=== PATIENT | male | born 1980 | race African-American/Black ===

== ENCOUNTER 2016-04-16 17:25 | Inpatient (IN) | payer OTHER ==
[~2016-04-16] VITALS: Ht 167.6 cm; Wt 112.0 kg
[2016-04-16 18:22] LABS: EOSINOPHIL (%) 1.3 % (0-5); EOSINOPHIL COUNT 0.1 K/uL (0-0.3); IMMATURE GRANULOCYTE (%) 0.4 % (0.0-0.7); IMMATURE GRANULOCYTE COUNT 0.2 K/uL; LYMPHOCYTE COUNT 1.6 K/uL (1.0-2.8); MCH 27.5 PG (29.0-34.0); MCV 78.4 FL (86-99); MEAN PLAT.VOLUME 8.6 uM^3 (9.0-12.4); MONOCYTE (%) 11.1 % (3-12); MONOCYTE COUNT 0.5 K/uL (0-0.8); NEUTROPHIL (%) 52.2 % (45-76); NEUTROPHIL COUNT 2.4 K/uL (1.8-6.4); PLATELET COUNT 262 K/uL (156-360); RBC DIS.WIDTH-CV 12.7 % (11.8-14.6); RBC DIS.WIDTH-SD 35.9 % (39-53); WHITE BLOOD COUNT 4.7 K/uL (4.1-10.2)
[2016-04-16 18:54] LABS: AMPHETAMINE NEGATIVE (500 ng/mL); BARBITURATES NEGATIVE (200 ng/mL); BENZODIAZEPINES NEGATIVE (150 ng/mL); COCAINE NEGATIVE (150 ng/mL); INTERNAL CONTROLS VALID? YES; METHADONE NEGATIVE (200 ng/mL); METHAMPHETAMINE NEGATIVE (500 ng/mL); OPIATES (MORPHINE) NEGATIVE (100 ng/mL); OXYCODONE NEGATIVE (100 ng/mL); PHENCYCLIDINE NEGATIVE (25 ng/mL); PROPOXYPHENE NEGATIVE (300 ng/mL); THC CANNABINOIDS NEGATIVE (50 ng/mL); TRICYCLIC ANTIDEPRESSANTS NEGATIVE (300 ng/mL)
[2016-04-16 18:59] LABS: ANION GAP 9 MEQ/L (2-14); CHLORIDE 100 MEQ/L (99-109); POTASSIUM 4.4 MEQ/L (3.7-5.4); SAMPLE HEMOLYSIS CHECK 0; SAMPLE ICTERIC CHECK 0; SAMPLE LIPEMIA CHECK 0; SODIUM 131 MEQ/L (136-147); TOTAL BILIRUBIN 0.2 MG/DL (0.0-1.0)
[2016-04-16 19:05] LABS: ALKALINE PHOSPHATASE 59 IU/L (3-129); GFR ESTIMATE (CALCULATED) > 59 mL/min/; GLUCOSE 102 mg/dL (70-99); UREA NITROGEN (BUN) 14 mg/dL (9-23)
[2016-04-16] MEDS ORDERED: VITAMIN D31000 UNI2 PO (20:11)
[2016-04-16] MEDS ORDERED: STOOL SOFTENER100 MG PO (20:14)
[2016-04-16] MEDS ORDERED: PROLIXIN10 MG PO (20:15)
[2016-04-16] MEDS ORDERED: OXCARBAZEPINE600 MG PO (20:15)
[2016-04-16] MEDS ORDERED: SERTRALINE HCL100 MG PO (20:16)
[2016-04-16] MEDS ORDERED: ADVIL,NUPRIN,M200 MG PO (20:16)
[2016-04-16] MEDS ORDERED: DITROPAN5 MG PO (20:16)
[2016-04-16 21:56] VITALS: BP 138/93
[2016-04-17 07:44] VITALS: BP 157/94
[2016-04-17 15:31] VITALS: BP 113/76
[2016-04-18 07:50] VITALS: BP 141/76
[2016-04-18 15:50] VITALS: BP 134/72
[2016-04-19 07:42] VITALS: BP 134/76
[2016-04-19 15:42] VITALS: BP 130/77
[2016-04-20 09:33] VITALS: BP 181/81
[2016-04-20 15:48] VITALS: BP 137/79
[2016-04-21 07:36] VITALS: BP 158/83
[2016-04-21] MEDS ORDERED: OLANZAPINE5 MG PO (09:27)
[2016-04-21] MEDS ORDERED: FLUPHENAZINE HC10 MG PO (09:27)
== END 2016-04-21 13:22 | disposition home or self-care (01) | DRG 885 ==
LOC: EME 17:25 → EDOF 19:29 → 1WEST 19:29
PROVIDERS: Emergency Medicine
DX: F20.0 Paranoid schizophrenia (principal); F32.9 Major depressive disorder, single episode, unspecified; G54.0 Brachial plexus disorders; F81.9 Developmental disorder of scholastic skills, unspecified; D70.9 Neutropenia, unspecified
CPT/HCPCS: 80053; 85025; 90837; 97150 GO; 99281; 99285